=== PATIENT | male | born 1975 | race Caucasian/White ===

== ENCOUNTER 2018-04-23 10:47 | Emergency (ER) | payer MEDICAID ==
[~2018-04-23] VITALS: Ht 167.6 cm; Wt 88.5 kg
[2018-04-23 11:06] VITALS: BP_SYST 154
--- NOTE | 2018-04-23 11:16 | NUR ---
Ambulatory to bed 8
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
--- NOTE | 2018-04-23 11:53 | NUR ---
ER Dr. Blanco at bedside examining patient.
--- NOTE | 2018-04-23 12:00 | NUR ---
Pt ambulated to radiology in stable condition
--- NOTE | 2018-04-23 12:11 | NUR ---
Back from xray, tolerated well.
--- NOTE | 2018-04-23 13:01 | NUR ---
Pt resting comfortably in bed with no signs of distress
--- NOTE | 2018-04-23 13:31 | NUR ---
Patient given written and verbal discharge instructions and verbalizes understanding. ER MD Blanco discussed with patient the results and treatment provided. Patient in stable condition. ID arm band removed. Rx of [place] given. Patient educated on pain management and to follow up with PMD. Pain Scale 0. Opportunity for questions provided and answered. Medication side effect fact sheet provided.
[2018-04-23 13:33] VITALS: BP_SYST 146
== END 2018-04-23 13:31 | disposition home or self-care (01) ==
LOC: SED 10:47
DX: S62.617A Displaced fracture of proximal phalanx of left little finger, initial encounter for closed fracture (principal); S13.4XXA Sprain of ligaments of cervical spine, initial encounter; S33.5XXA Sprain of ligaments of lumbar spine, initial encounter; S63.501A Unspecified sprain of right wrist, initial encounter; S63.502A Unspecified sprain of left wrist, initial encounter; F17.200 Nicotine dependence, unspecified, uncomplicated; I10 Essential (primary) hypertension; Z90.89 Acquired absence of other organs; V43.52XA Car driver injured in collision with other type car in traffic accident, initial encounter; Y93.89 Activity, other specified; Y92.410 Unspecified street and highway as the place of occurrence of the external cause; Y99.8 Other external cause status
CPT/HCPCS: 99284

== ENCOUNTER 2020-09-25 10:35 | Emergency (ER) | payer BC, SELFPAY ==
[2020-09-25 11:05] VITALS: BP_SYST 137
--- NOTE | 2020-09-25 11:12 | NUR ---
PT TRIAGED.PLACED IN CHAIR 1 AWAITING EXAM.
--- NOTE | 2020-09-25 11:15 | NUR ---
PT AAOX4 NO ACUTE RESP DISTRESS NOTED. PT SENT FOLLOW TO [facility] VISIT.
--- NOTE | 2020-09-25 11:18 | NUR ---
PT SEEN BY GERSON.
[2020-09-25 12:15] VITALS: BP_SYST 137
--- NOTE | 2020-09-25 12:15 | NUR ---
Patient given written and verbal discharge instructions and verbalizes understanding. ER MD discussed with patient the results and treatment provided. Patient in stable condition. ID arm band removed. Rx of [place] given. Patient educated on pain management and to follow up with PMD. Pain Scale 3. Opportunity for questions provided and answered. Medication side effect fact sheet provided.
== END 2020-09-25 12:15 | disposition home or self-care (01) ==
LOC: SED 10:35
DX: R07.89 Other chest pain (principal); I10 Essential (primary) hypertension
CPT/HCPCS: 99283